=== PATIENT | female | born 1990 | race Asian ===

== ENCOUNTER 2023-01-26 20:14 | Emergency (ER) | payer OTHER ==
[2023-01-26 20:44] VITALS: BP 100/73; PULSE 91; RESP 16; TEMP 98.6; BMI 22.4
[2023-01-26 21:00] LABS: HCG,QUALITATIVE URINE Negative
[2023-01-26 22:28] LABS: EPITHELIAL CELLS FEW /hpf
== END 2023-01-26 21:33 | disposition home or self-care (01) ==
LOC: FER 20:14
DX: R10.30 Lower abdominal pain, unspecified (principal); R11.10 Vomiting, unspecified
CPT/HCPCS: 81003; 81015; 84703; 99283-25